=== PATIENT | male | born 1955 | race Caucasian/White ===

== ENCOUNTER → 2016-09-04 | Outpatient (CLI) | payer BC ==
--- NOTE | 2016-09-04 16:18 | Diagnostic Imaging Report ---
PROCEDURE: MRI left joint lower extremity without contrast. TECHNIQUE: Multiplanar, multisequence MR imaging of the left knee was performed without contrast. COMPARISON: None available. INDICATION: Medial left knee pain and swelling. FINDINGS: MENISCI Medial meniscus: There is truncation of the free edge of the body and posterior horn of the medial meniscus. There is also superimposed complex tearing of the residual central and peripheral one-third of the medial meniscal body which is extruded into the medial gutter. Lateral meniscus: Normal. LIGAMENTS ACL: Intact. PCL: Intact. MCL: Intact. LCL: The lateral collateral ligamentous complex is intact. EXTENSOR MECHANISM The extensor mechanism is intact. CARTILAGE Medial compartment: There is a broad area of high-grade partial-thickness chondral loss in the anterior and central weightbearing portion of the medial femoral condyle. Opposing tibial plateau cartilage is preserved. No underlying subchondral bone marrow edema. Lateral compartment: The lateral compartment articular cartilage is preserved without high-grade chondromalacia. Patellofemoral compartment: Focal full-thickness chondral fissuring with underlying focal subchondral bone marrow edema in the medial patellar facet. BONE No fracture, stress fracture or osteonecrosis. SOFT TISSUE: No knee effusion or Vazquez's cyst. IMPRESSION: 1. 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 There is also degenerative free-edge tearing of the posterior horn of the medial meniscus. 2. There is a broad area of high-grade partial/near full-thickness chondral loss in the central weightbearing portion of the medial femoral condyle. 3. Focal full-thickness chondral fissuring in the medial patellar facet. Dictated by: Dictated on workstation # [id number]
== END ==
LOC: RAD 15:05
PROVIDERS: ATTEND Orthopaedic Surgery
DX: M25.562 Pain in left knee (principal)
CPT/HCPCS: 73721